=== PATIENT | female | born 1965 | race Caucasian/White ===

== ENCOUNTER 2017-09-12 11:21 | Emergency (ER) | payer OTHER, BC ==
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
[2017-09-12 13:28] VITALS: BP 121/40
== END 2017-09-12 13:27 | disposition home or self-care (01) ==
LOC: ER 11:21
DX: M79.601 Pain in right arm (principal); M25.511 Pain in right shoulder; F17.200 Nicotine dependence, unspecified, uncomplicated; E78.00 Pure hypercholesterolemia, unspecified; K21.9 Gastro-esophageal reflux disease without esophagitis; Z90.710 Acquired absence of both cervix and uterus
CPT/HCPCS: 99283